=== PATIENT | female | born 1970 | race Caucasian/White ===

== ENCOUNTER 2020-01-31 17:24 | Outpatient (CLI) | payer OTHER, SELFPAY ==
--- NOTE | ~2020-01-31 | XR_ITS ---
XR hip BI 2V w AP pelvis DATE: 01/31/2020 18:04 INDICATION: Bilateral hip pain TECHNIQUE: AP pelvis. AP and lateral views of each hip COMPARISON: None FINDINGS: The pubic symphysis and sacroiliac joints are intact. Hip joint spaces are symmetric and we ll preserved. No pelvic or hip fracture or hip dislocation. No avascular necrosis or bone destruction of either hip. IMPRESSION: Negative Reviewed, dictated and finalized at location A. IMPRESSION: Negative
--- NOTE | ~2020-01-31 | XR_ITS ---
XR hand BI arthritis min 3V DATE: 01/31/2020 18:04 INDICATION: Metabolic syndrome. Joint pain. TECHNIQUE: 4 views of each hand COMPARISON: None FINDINGS: No fracture or dislocation, periosteal reaction or bone destruction, erosive change or faith drocalcinosis. Joint spaces are preserved. IMPRESSION: Negative Reviewed, dictated and finalized at location A. IMPRESSION: Negative
--- NOTE | ~2020-01-31 | XR_ITS ---
XR chest 2V DATE: 01/31/2020 18:04 INDICATION: Metabolic syndrome. Joint pain. TECHNIQUE: PA and lateral views COMPARISON: None FINDINGS: Normal heart size. No hilar or mediastinal enlargement. No pulmonary infiltrate or consolid ation, pleural effusion or pulmonary vascular congestion or pneumothorax. IMPRESSION: No active cardiac pulmonary disease Reviewed, dictated and finalized at location A.
--- NOTE | ~2020-01-31 | XR_ITS ---
EXAMINATION: XR shoulder LT min 2V DATE: 01/31/2020 18:04 INDICATION: Left shoulder joint pain. TECHNIQUE: AP internally and externally rotated, AP oblique externally rotated and transscapular Y vi ews of the left shoulder were obtained. COMPARISON: None FINDINGS: Normal alignment. No fracture. Glenohumeral joint is normal. Mild acromioclavicular osteoarthritis w ith tiny inferiorly directed osteophytes. Soft tissues are unremarkable. Left lung is clear. IMPRESSION: Mild left acromioclavicular osteoarthritis. Reviewed, dictated and finalized at location A.
== END 2020-01-31 17:25 | disposition home or self-care (01) ==
PROVIDERS: PCP Family Medicine; Visit Provider Family Medicine
DX: E88.81 Metabolic syndrome and other insulin resistance (principal); M25.50 Pain in unspecified joint; Z79.899 Other long term (current) drug therapy; M19.012 Primary osteoarthritis, left shoulder
CPT/HCPCS: 71046; 73030; 73130; 73521

== ENCOUNTER 2022-02-26 16:14 | Outpatient (CLI) | payer OTHER, SELFPAY ==
--- NOTE | ~2022-02-26 | MM_ITS ---
EXAMINATION: MM screening [facility] BI w sasha HISTORY: Screening TECHNIQUE: Craniocaudal and mediolateral oblique 3-D tomosynthesis images were obtained and synthetic 2-D images were generated. CAD analysis was submitted and interpreted. COMPARISON: Comparison to multiple prior studies sequentially, with oldest reviewed study dated 06/2012. BREAST PARENCHYMAL COMPOSITION: There are scattered areas of fibroglandular density. FINDINGS: There is no evidence of suspicious mass, calcification, or architectural distortion to sugg est malignancy in either breast. There has been no suspicious interval change. IMPRESSION: 1. No mammographic evidence of malignancy. 2. Recommend routine screening mammography in one year. BI-RADS Category 1: Negative Reviewed, dictated and finalized at location A.
== END 2022-02-26 16:15 | disposition home or self-care (01) ==
PROVIDERS: PCP Family Medicine; Visit Provider Obstetrics & Gynecology
DX: Z12.31 Encounter for screening mammogram for malignant neoplasm of breast (principal)
CPT/HCPCS: 77063; 77067

== ENCOUNTER 2023-07-07 15:38 | Outpatient (CLI) | payer OTHER, SELFPAY ==
--- NOTE | ~2023-07-07 | MM_ITS ---
EXAMINATION: MM screening [facility] BI w sasha HISTORY: Screening mammogram TECHNIQUE: Craniocaudal and mediolateral oblique 3-D tomosynthesis images were obtained and synthetic 2-D images were generated. CAD analysis was submitted and interpreted. COMPARISON: 02/26/2022, 03/12/2020 bilateral screening mammogram examinations BREAST PARENCHYMAL COMPOSITION: There are scattered areas of fibroglandular density. FINDINGS: There is no evidence of suspicious mass, calcification, or architectural distortion to sugg est malignancy in either breast. There has been no suspicious interval change. IMPRESSION: 1. No mammographic evidence of malignancy. 2. Recommend routine screening mammography in one year. BI-RADS Category 1: Negative Reviewed, dictated and finalized at location A.
== END 2023-07-07 15:39 | disposition home or self-care (01) ==
LOC: ANHIMG 15:40
PROVIDERS: PCP Family Medicine; Visit Provider Obstetrics & Gynecology
DX: Z12.31 Encounter for screening mammogram for malignant neoplasm of breast (principal)
CPT/HCPCS: 77063; 77067

== ENCOUNTER 2023-08-20 14:09 | Outpatient (CLI) | payer OTHER, SELFPAY ==
--- NOTE | ~2023-08-20 | XR_ITS ---
XR hand RT min 3V 08/20/2023 14:23 Indication: Right hand pain Procedure: 3 views right hand Comparison: No prior studies for comparison. Findings: No fracture, subluxation or dislocation. There is normal mineralization. No focal soft tiss ue abnormality. No foreign bodies. There are mild degenerative changes of the first MCP and first and second DIP joints. Impression: 1: Mild polyarticular osteoarthritis. Reviewed, dictated and finalized at location B. Impression: 1: Mild polyarticular osteoarthritis.
== END 2023-08-20 14:10 ==
PROVIDERS: PCP Nurse Practitioner Family; Visit Provider Nurse Practitioner Family
DX: M19.041 Primary osteoarthritis, right hand (principal)
CPT/HCPCS: 73130

== ENCOUNTER 2023-11-10 12:32 | Outpatient (CLI) | payer OTHER, SELFPAY | END 2023-11-10 12:33 | LOC: MICIMG 12:33 | PROVIDERS: PCP Family Medicine; Visit Provider Family Medicine | DX: M79.671 Pain in right foot (principal) | CPT/HCPCS: 73630 ==

== ENCOUNTER 2024-01-13 16:19 | Outpatient (CLI) | payer OTHER, SELFPAY ==
--- NOTE | ~2024-01-13 | XR_ITS ---
Clinical Indication: Shortness of breath PA and lateral views of the chest: Comparison: 01/31/2020 Findings: The lungs are clear, without evidence of focal consolidation or pleural effusion. Cardiome diastinal silhouette is within normal limits. Bones and soft tissues are unremarkable. Impression: Normal chest. Reviewed, dictated and finalized at [facility]. Impression: Normal chest.
== END 2024-01-13 16:20 | disposition home or self-care (01) ==
LOC: MICIMG 16:20
PROVIDERS: PCP Family Medicine; Visit Provider Family Medicine
DX: R06.02 Shortness of breath (principal)
CPT/HCPCS: 71046

== ENCOUNTER 2024-06-12 00:56 | Day surgery (SDC) | payer OTHER, SELFPAY ==
[2024-04-28 13:29] VITALS: BMI 31.8
[2024-05-26 13:40] VITALS: BMI 31.8
--- OUTSIDE RECORDS SUMMARY | 2024-06-12 01:00 | XMS_ITS | Clinical Summary ---
Author Organization [facility] Address [facility] [place] [address] Care Team Providers Care Professor Of Social Work Name Role Phone Marisa Fish MD Primary Care Provider + Allergies No known active allergies Medications cetirizine 10 mg capsule Zyrtec 10 mg capsule Take by oral route. Active omeprazole (PriLOSEC) 20 mg capsule Active meloxicam (MOBIC) 15 mg tablet Take 1 tablet (15 mg total) by mouth daily with breakfast Take 1 daily with food 30 tablet 5 Active Active Problems Problem Noted Date Diagnosed Date Menometrorrhagia 03/31/2022 HLA B27 (HLA B27 positive) 05/14/2020 At risk for obstructive sleep apnea 05/14/2020 Chronic midline back pain 05/14/2020 Arthralgia 05/14/2020 Low vitamin D level 05/14/2020 Osteoarthritis of left acromioclavicular joint 0 05/14/2020 Greater trochanteric pain syndrome 05/14/2020 Morning stiffness of joints 05/14/2020 Encounters Date Type Department Care Team Description 05/09/2024 8:00 AM VISUAL DISPLAY ASSOCIATE - 05/09/2024 11:59 PM VISUAL DISPLAY ASSOCIATE Hospital Encounter [facility] [address] [place] [id number] Left elbow pain Discharge Disposition: Discharge to home or self care 05/09/2024 8:00 AM VISUAL DISPLAY ASSOCIATE Office Visit [facility] Orthopaedic Surgery [id number] [place] [address] [address] [place] [address] Bubba Delgado PA Lateral epicondylitis of left elbow (Primary Dx); Left elbow pain from Last 3 Months Surgical History Surgery Date Site/Laterality Comments SECTION CHOLECYSTECTOMY ENDOMETRIAL ABLATION With fibroidectomy Medical History Medical History Date Comments Acid reflux Arthritis Family History Medical History Relation Name Comments Cancer Father Francisco Clotting disorder Father Francisco Hypertension Father Francisco Prostate cancer Father Francisco Arthritis Mother Leesa Relation Name Status Comments Father Francisco Mother Leesa Social History Tobacco Use Types Packs/Day Years Used Date Smoking Tobacco: Never Smokeless Tobacco: Never Tobacco Cessation:Counseling Given: Not Answered Comments No Sex and Gender Information Value Date Recorded Sex Assigned at Not on file Legal Sex Female 12:55 AM VISUAL DISPLAY ASSOCIATE Gender Identity Not on file Sexual Orientation Not on file Obstetrics History Para Term AB IAB SAB Ectopic Multiple Livin g Live Births 2 2 2 Date Outcome GA Total Labor Labor/2nd/3rd Weight Sex Type Anes PTL Alejandra A1 A5 Name Clin Para Para Last Filed Vital Signs Vital Sign Reading Time Taken Comments Blood Pressure 154/80 09/01/2022 3:38 PM CDT Pulse 116 09/01/2022 3:38 PM CDT Temperature 37.2 C (98.9 F) 09/01/2022 3:38 PM CDT Respiratory Rate 16 09/01/2022 3:38 PM CDT Oxygen Saturation 98% 09/01/2022 3:38 PM CDT Inhaled Oxygen Concentration - - Weight 80.3 kg (177 lb) 05/09/2024 8:06 AM VISUAL DISPLAY ASSOCIATE Height 162.6 cm (5' 4 ) 05/09/2024 8:06 AM VISUAL DISPLAY ASSOCIATE Body Mass Index 30.38 05/09/2024 8:06 AM VISUAL DISPLAY ASSOCIATE Plan of Treatment Health Maintenance Due Date Last Done Comments Breast Cancer Screening-Mammogram 1971 Cervical Cancer Screening 1971 Colon Cancer Screening-Colonoscopy 1971 Depression Screening 1971 Hepatitis C Screening 1971 Hepatitis B Screening 07/25/1989 Regular Well Visit/Exam 18-64 07/25/1989 Zoster Vaccine (1 of 2) 07/25/2021 Influenza Vaccine (#1) 2023 DTaP/Tdap/Td Vaccine (2 - Td or Tdap) 02/15/2034 02/16/2024 Pneumococcal vaccine <65 Aged Out No longer eligible based on patient's age to complete this topic Procedures Procedure Name Priority Date/Time Associated Diagnosis Comments XR ELBOW LEFT 3 OR MORE VIEWS Schedule Routine, Read Routine (OP Routine) 05/09/2024 8:05 AM VISUAL DISPLAY ASSOCIATE Left elbow pain from Last 3 Months Results * XR Elbow Left 3 or More Views (05/09/2024 8:05 AM VISUAL DISPLAY ASSOCIATE) Anatomical Region Laterality Modality Upper Extremities, Elbow Left Compute d Radiography 05/09/2024 8:08 AM VISUAL DISPLAY ASSOCIATE Impressions 05/09/2024 8:08 AM VISUAL DISPLAY ASSOCIATE No acute osseous abnormality in the left elbow. Electronically signed by: Sravan Irene M.D. Narrative 05/09/2024 8:08 AM VISUAL DISPLAY ASSOCIATE EXAMINATION: XR ELBOW LEFT 3 OR MORE VIEWS HISTORY: Left elbow pain COMPARISON: None available FINDINGS: No acute fracture or dislocation. There may be mild ulnotrochlear joint space narrowing. No elbow joint effusion. Procedure Note Sravan Irene MD - 05/09/2024 EXAMINATION: XR ELBOW LEFT 3 OR MORE VIEWS HISTORY: Left elbow pain COMPARISON: None available FINDINGS: No acute fracture or dislocation. There may be mild ulnotrochlear joint space narrowing. No elbow joint effusion. IMPRESSION: No acute osseous abnormality in the left elbow. Electronically signed by: Sravan Irene M.D. Bubba PELAYO IM XR PROCEDURES Final Result from Last 3 Months Insurance [employer] IBEW C[employer] IBEW Care Teams Professor Of Social Work Relationship Specialty Start Date End Date Marisa Fish MD PCP - General 05/14/20
--- OUTSIDE RECORDS SUMMARY | 2024-06-12 01:00 | XMS_ITS | Referral Summary ---
Author Organization [facility] Address [facility] [place] [address] Care Team Providers Care Greenskeeper Laborer Name Role Phone Marisa Fish MD Primary Care Provider + Encounters Date Type Department Care Team Description 05/09/2024 8:00 AM CORE CHECKER - 05/09/2024 11:59 PM CORE CHECKER Hospital Encounter [facility] [id number] [place] [id number] Left elbow pain Discharge Disposition: Discharge to home or self care 05/09/2024 8:00 AM CORE CHECKER Office Visit [facility] Orthopaedic Surgery [address] [place] [address] [address] [place] [phone] Bubba Delgado PA Lateral epicondylitis of left elbow (Primary Dx); Left elbow pain from Last 3 Months Allergies No known active allergies Medications cetirizine [...] syndrome 05/14/2020 Morning stiffness of joints 05/14/2020 Social History Tobacco Use Types Packs/Day Years Used Date Smoking Tobacco: Never Smokeless Tobacco: Never Tobacco Cessation:Counseling Given: Not Answered Comments No Sex and Gender Information Value Date Recorded Sex Assigned at Not on file Legal Sex Female 12:55 AM CORE CHECKER Gender Identity Not on file Sexual Orientation Not on file Last Filed Vital Signs Vital Sign Reading Time Taken Comments Blood Pressure 154/80 09/01/2022 3:38 PM CDT Pulse 116 09/01/2022 3:38 PM CDT Temperature 37.2 C (98.9 F) 09/01/2022 3:38 PM CDT Respiratory Rate 16 09/01/2022 3:38 PM CDT Oxygen Saturation 98% 09/01/2022 3:38 PM CDT Inhaled Oxygen Concentration - - Weight 80.3 kg (177 lb) 05/09/2024 8:06 AM CORE CHECKER Height 162.6 cm (5' 4 ) 05/09/2024 8:06 AM CORE CHECKER Body Mass Index 30.38 05/09/2024 8:06 AM CORE CHECKER Plan of Treatment Not on file Procedures Procedure Name Priority Date/Time Associated Diagnosis Comments XR ELBOW LEFT 3 OR MORE VIEWS Schedule Routine, Read Routine (OP Routine) 05/09/2024 8:05 AM CORE CHECKER Left elbow pain from Last 3 Months Results * XR Elbow Left 3 or More Views (05/09/2024 8:05 AM CORE CHECKER) Anatomical Region Laterality Modality Upper Extremities, Elbow Left Compute d Radiography 05/09/2024 8:08 AM CORE CHECKER Impressions 05/09/2024 8:08 AM CORE CHECKER No acute osseous abnormality in the left elbow. Electronically signed by: Sravan Irene M.D. Narrative 05/09/2024 8:08 AM CORE CHECKER EXAMINATION: XR ELBOW LEFT 3 OR MORE [...] signed by: Sravan Irene M.D. Bubba PELAYO IMG XR PROCEDURES Final Result from Last 3 Months Insurance C[employer] IBEW CIG[employer] IBEW C[employer] IBEW Care Teams Greenskeeper Laborer Relationship Specialty Start Date End Date Marisa Fish MD PCP - General 05/14/20
--- OUTSIDE RECORDS SUMMARY | 2024-06-12 01:00 | XMS_ITS | Clinical Summary ---
Author Organization [facility] Care Team Providers Care Aerial Photograph Interpreter Name Role Phone Unavailable Primary Care Provider Unavailabl e Social History Tobacco Use Types Packs/Day Years Used Date Smoking Tobacco: Never Assessed Comments Unknown Sex and Gender Information Value Date Recorded Sex Assigned at Not on file Legal Sex Female 3:10 PM SAGGER SOAK Gender Identity Not on file Sexual Orientation Not on file Plan of Treatment Health Maintenance Due Date Last Done Comments Hepatitis C Virus (HCV) Screening 1971 TdaP Immunization 1971 Hepatitis B Immunization (1 of 3 - 19+ 3-dose series) 07/25/1990 Pap Smear 07/25/1992 Cervical Cancer Screening (CCS) 07/25/2001 HPV/Cotest 07/25/2001 Colonoscopy 07/25/2016 Colorectal Cancer Screening 07/25/2016 Cologuard 07/25/2021 Immunochemical Fecal Occult Blood 07/25/2021 Mammogram 07/25/2021 Pneumococcal Immunization (5 0+ years) (1 of 1 - PCV) 07/25/2021 Zoster Immunization (1 of 2) 07/25/2021 Influenza Immunization (#1) 2023 SARS-COV-2 Immunization ( season) 2023 Respiratory Syncytial Virus (RSV) Immunization (Adult) (1 - 1-dose 75+ series) 07/25/2046 Meningococcal Immunization (ACWY) Aged Out No longer eligible based on patient's age to complete this topic Pneumococcal Immunization Combined Aged Out No longer eligible based on patient's age to complete this topic Rotavirus Immunization Aged Out No lo nger eligible based on patient's age to complete this topic
[2024-06-12 08:35] VITALS: BP 138/79; PULSE 68; RESP 18; TEMP 35.9; O2SAT 98; BMI 30.8
[2024-06-12] MEDS: LACTATED RINGERS 1,000 ML 150 ML IV CONT (08:51)
--- NOTE | 2024-06-12 09:26 | P.PNAN_ITS ---
Anes - Initial Pre Proc Eval Procedure: Operation Date: 06/12/24 09:30 Proposed Procedures p Screening Colonoscopy - Vinod Smith MD Date/Time: 06/12/24 09:26 Surgeon: Vinod Smith MD Pre Op Diagnosis: screening for malignant neoplasm of colon Patient Data Age: 53 Gender: F Height: 1.63 m Weight: 81.5 kg Last Vital Signs Temp 35.9 C L 06/12/24 08:35 Pulse 68 06/12/24 08:35 Resp 18 06/12/24 08:35 BP 138/79 06/12/24 08:35 Pulse Ox 98 06/12/24 08:35 O2 Del Method Room Air 06/12/24 08:35 Allergies Allergy/AdvReac Type Severity Reaction Status Date / Time adhesive Allergy Unknown Unknown Verified 06/12/24 08:38 erythromycin base Allergy Unknown Nausea Verified 06/12/24 08:38 Home Medications ?Medication ?Instructions ?Recorded ?Confirmed ?Type cetirizine 10 mg capsule (Zyrtec) 10 mg PO DAILY 01/31/20 06/12/24 History triamcinolone acetonide 0.1 % 1 applic topical BID PRN itching 07/15/21 06/12/24 Rx topical cream #30 grams omega-3 fatty acids 1,250 mg 1,250 mg PO DAILY 12/03/21 06/12/24 History capsule turmeric 400 mg capsule 400 mg PO DAILY 12/03/21 06/12/24 History clobetasol 0.05 % scalp solution 1 applic topical DAILY #50 mL 02/16/24 06/12/24 Rx omeprazole 20 mg-sodium 1 cap PO DAILY 02/16/24 06/12/24 History bicarbonate 1.1 gram capsule Patient hx anesthesia problems: none Family hx anesthesia problems: none Results Review: All pre-operative results and documents have been reviewed as part of the pre- operative evaluation. [facility] Past Medical History Medical History Ovarian enlargement, left Relies on partner vasectomy for contraception Coccydynia Piriformis syndrome of both sides Premenstrual tension syndromes Surgical History Surgical History Delivery by section (03/05/01) Primary - transverse/breech : 10/23/2013 rpt c/s History of hysteroscopy (12/10/16) NovaSure endometrial ablation, hysteroscopic myomectomy, D&C, hysteroscopy- Menometrorrhagia, Dysmenorrhea, endometrial fibroid- Leiomyoma Hx laparoscopic cholecystectomy Family History Family History Father Malignant neoplasm of prostate Hypertension Deep vein thrombosis Other Depression Diabetes mellitus Family history of cardiovascular disease Social History Social History Smoking status: Never smoker Alcohol intake: never Substance use: never Substance use type: does not use Living arrangements: other Occupation/Education: occupation 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 Gender identity (if verbalized by the patient): Female Sexual Orientation (if Verbalized by the Patient): Straight or Heterosexual Spiritual care concerns: No Anes - Eval Final PreProcedure Day of Procedure 06/12/24 09:26 Patient weight: obese Heart: regular rate and rhythm Lungs: clear to auscultation Airway: Mallampati scale class II Neurological: alert and oriented Last oral intake: >/= 8 hours ASA classification: II Emergent: no Anesthetic plan: proceed Anesthesia type and monitoring: general GIVS and standard monitoring Results Review: All pre-operative results and documents have been reviewed as part of the pre- operative evaluation. GERD well controlled with medication. Informed Consent: The patient's anesthetic plan and its attendant risks and benefits were discussed with the patient/family/POA. Questions were solicited and answers provided to the satisfaction of the patient/family/POA.
--- NOTE | 2024-06-12 09:37 | PM.IMHP ---
H&P: HPI History of Present Illness Date/Time: 06/12/24 09:37 Chief Complaint: screening colonoscopy Narrative: This is the patient's first colonoscopy. There are no GI symptoms and there is no family history of colorectal cancer. Review of Systems Review of Systems: All systems reviewed & are unremarkable except as noted in HPI and below PMFSH Past Medical History Medical History Ovarian enlargement, left Relies on partner vasectomy for contraception Coccydynia Piriformis syndrome of both sides Premenstrual tension syndromes Surgical History Surgical History Delivery by section (03/05/01) Primary - transverse/breech : 10/23/2013 rpt c/s History of hysteroscopy (12/10/16) NovaSure endometrial ablation, hysteroscopic myomectomy, D&C, hysteroscopy- Menometrorrhagia, Dysmenorrhea, endometrial fibroid- Leiomyoma Hx laparoscopic cholecystectomy Family History Family History Father Malignant neoplasm of prostate Hypertension Deep vein thrombosis Other Depression Diabetes mellitus Family history of cardiovascular disease Social History Social History Smoking status: Never smoker Alcohol intake: never Substance use: never Substance use type: does not use Living arrangements: other Occupation/Education: occupation 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 Gender identity (if verbalized by the patient): Female Sexual Orientation (if Verbalized by the Patient): Straight or Heterosexual Spiritual care concerns: No Meds Home Medications and Allergies Home Medications ?Medication ?Instructions ?Recorded ?Confirmed ?Type cetirizine 10 mg capsule (Zyrtec) 10 mg PO DAILY 01/31/20 06/12/24 History triamcinolone acetonide 0.1 % 1 applic topical BID PRN itching 07/15/21 06/12/24 Rx topical cream #30 grams omega-3 fatty acids 1,250 mg 1,250 mg PO DAILY 12/03/21 06/12/24 History capsule turmeric 400 mg capsule 400 mg PO DAILY 12/03/21 06/12/24 History clobetasol 0.05 % scalp solution 1 applic topical DAILY #50 mL 02/16/24 06/12/24 Rx omeprazole 20 mg-sodium 1 cap PO DAILY 02/16/24 06/12/24 History bicarbonate 1.1 gram capsule Allergies Allergy/AdvReac Type Severity Reaction Status Date / Time adhesive Allergy Unknown Unknown Verified 06/12/24 08:38 erythromycin base Allergy Unknown Nausea Verified 06/12/24 08:38 Vital Signs Vital Signs - 24 hr 06/12/24 08:35 Temperature 96.6 F L Pulse Rate 68 Respiratory Rate 18 Blood Pressure 138/79 Pulse Oximetry 98 Oxygen Delivery Room Air Exam Const: General: cooperative and healthy appearing Resp: Effort & Inspection: normal respiratory effort and able to speak in complete sentences Auscultation: clear to auscultation bilaterally Cardio: Rate: regular rate Rhythm: regular rhythm GI: Inspection: normal to inspection GI Palp: No No hepatosplenomegaly present Auscultation: normal bowel sounds Rectal Exam: deferred Skin: General skin exam: normal color Psych: Appearance: grossly normal Mental Status: mental status grossly normal Assessment and Plan Assessment and plan (1) Encounter for screening colonoscopy: Code(s): Z12.11 - Encounter for screening for malignant neoplasm of colon Status: Acute Assessment and Plan: The patient is deemed a good candidate for the procedure. Consent signed. Will proceed.
[2024-06-12 10:04] VITALS: BP 109/73; PULSE 69; RESP 18; O2SAT 98
[2024-06-12 10:14] VITALS: BP 112/71; PULSE 62; RESP 18; O2SAT 100
[2024-06-12 10:24] VITALS: BP 120/78; PULSE 63; RESP 18; O2SAT 100
== END 2024-06-12 10:36 | disposition home or self-care (01) ==
PROVIDERS: PCP Family Medicine; Referring Provider Family Medicine; Visit Provider Internal Medicine Gastroenterology
PROC: 0DJD8ZZ Inspection of Lower Intestinal Tract, Via Natural or Artificial Opening Endoscopic (ICD-10-PCS; CPT 45378; principal; 2024-06-12 09:30)
DX: Z12.11 Encounter for screening for malignant neoplasm of colon (principal)
CPT/HCPCS: 45378; J2003; J2704; J7120

== ENCOUNTER 2024-08-11 14:41 | Outpatient (CLI) | payer OTHER, SELFPAY ==
--- NOTE | ~2024-08-11 | MM_ITS ---
EXAMINATION: MM screening [facility] BI w sasha HISTORY: Screening TECHNIQUE: Craniocaudal and mediolateral oblique 3-D tomosynthesis images were obtained and synthetic 2-D images were generated. CAD analysis was submitted and interpreted. COMPARISON: Comparison to multiple prior studies sequentially, with oldest reviewed study dated 10/20. BREAST PARENCHYMAL COMPOSITION: Not dense: There are scattered areas of fibroglandular density. FINDINGS: There is no evidence of suspicious mass, calcification, or architectural distortion to sugg est malignancy in either breast. There has been no suspicious interval change. IMPRESSION: 1. No mammographic evidence of malignancy. 2. Recommend routine screening mammography in one year. BI-RADS Category 1: Negative Reviewed, dictated and finalized at location B.
--- OUTSIDE RECORDS SUMMARY | 2024-08-11 14:44 | XMS_ITS | Clinical Summary ---
Author Organization [facility] Care Team Providers Care Certified Nurse Practitioner Name Role Phone Unavailable Primary Care Provider Unavailabl e Social History Tobacco Use Types Packs/Day Years Used Date Smoking Tobacco: Never Assessed Comments Unknown Sex and Gender Information Value Date Recorded Sex Assigned at Not on file Legal Sex Female 3:10 PM COMMUNITY BOARD MEMBER Gender Identity Not on file Sexual Orientation [...]
--- OUTSIDE RECORDS SUMMARY | 2024-08-11 14:44 | XMS_ITS | Referral Summary ---
Author Organization [facility] Address [facility] [place] [address] Care Team Providers Care Guard Sergeant Name Role Phone Marisa Fish MD Primary Care Provider + Encounters Date Type Department Care Team Description 06/20/2024 8:15 AM LEAD BURNER HELPER Office Visit [facility] Orthopaedic Surgery [address] [place] [address] [address]nd [address] [place] [address] Bubba Delgado PA Lateral epicondylitis of left elbow (Primary Dx); Medial epicondylitis of left elbow from Last 3 Months Allergies No known active allergies Medications cetirizine 10 mg capsule Zyrtec 10 mg capsule Take by oral route. Active omeprazole (PriLOSEC) 20 mg capsule Active etodolac (LODINE) 400 mg tablet Take 1 tablet (400 mg total) by mouth 2 (two) times a day with meals 60 tablet 06/20/2024 Active Active Problems Problem Noted Date Diagnosed [...] on file Legal Sex Female 12:55 AM LEAD BURNER HELPER Gender Identity Not on file Sexual Orientation [...] - - Weight 80.3 kg (177 lb) 06/20/2024 8:15 AM LEAD BURNER HELPER Height 162.6 cm (5' 4 ) 06/20/2024 8:15 AM LEAD BURNER HELPER Body Mass Index 30.38 06/20/2024 8:15 AM LEAD BURNER HELPER Plan of Treatment Not on file Insurance [employer] IBEW Care Teams Guard Sergeant Relationship Specialty Start Date End Date Marisa Fish MD PCP - General 05/14/20
--- OUTSIDE RECORDS SUMMARY | 2024-08-11 14:44 | XMS_ITS | Clinical Summary ---
Author Organization [facility] Address [address] [place] [address] Care Team Providers Care Adjustment Examiner Name Role Phone Marisa Fish MD Primary [...] Department Care Team Description 06/20/2024 8:15 AM CALENDER LET OFF HELPER Office Visit [facility] Orthopaedic Surgery [address] [facility] [address] [address] [place] [address] Bubba Delgado PA Lateral epicondylitis of left elbow (Primary Dx); Medial epicondylitis of left elbow from Last 3 Months Surgical History Surgery [...] on file Legal Sex Female 12:55 AM CALENDER LET OFF HELPER Gender Identity Not on file Sexual [...] 80.3 kg (177 lb) 06/20/2024 8:15 AM CALENDER LET OFF HELPER Height 162.6 cm (5' 4 ) 06/20/2024 8:15 AM CALENDER LET OFF HELPER Body Mass Index 30.38 06/20/2024 8:15 AM CALENDER LET OFF HELPER Plan of Treatment Health Maintenance Due Date Last Done Comments Breast Cancer Screening-Mammogram 1971 Cervical Cancer Screening 1971 Colon Cancer Screening-Colonoscopy 1971 Depression Screening 1971 Hepatitis C Screening 1971 Hepatitis B Screening 07/25/1989 Regular Well Visit/Exam 18-64 07/25/1989 Zoster Vaccine (1 of 2) 07/25/2021 Influenza Vaccine (Season Ended) 2024 DTaP/Tdap/Td Vaccine (2 - Td or Tdap) 02/15/2034 02/16/2024 Pneumococcal vaccine <65 Aged Out No longer eligible based on patient's age to complete this topic Insurance CIGRAVINDRA IBANN CIGRAVINDRA IBANN CIGRAVINDRA IBANN Care Teams Adjustment Examiner Relationship Specialty Start Date End Date Marisa Fish MD PCP - General 05/14/20
== END 2024-08-11 14:42 | disposition home or self-care (01) ==
LOC: ANHIMG 14:42
PROVIDERS: PCP Family Medicine; Visit Provider Obstetrics & Gynecology
DX: Z12.31 Encounter for screening mammogram for malignant neoplasm of breast (principal)
CPT/HCPCS: 77063; 77067

== ENCOUNTER 2025-03-13 10:52 | Outpatient (CLI) | payer OTHER, SELFPAY ==
--- NOTE | ~2025-03-13 | XR_ITS ---
EXAMINATION: XR toe 1st RT min 2V, 03/13/2025 11:12 SHIP BOSS HISTORY: Pain in right toe COMPARISON: No comparisons available. Findings: No acute fracture or malalignment. No significant degenerative changes. Soft tissues unremarkable. Impression: No acute fracture or malalignment. Reviewed, dictated and finalized at location P. BOSS Impression: No acute fracture or malalignment.
== END 2025-03-13 10:53 | disposition home or self-care (01) ==
PROVIDERS: PCP Family Medicine; Visit Provider Family Medicine
DX: M79.674 Pain in right toe(s) (principal)
CPT/HCPCS: 73660